=== PATIENT | female | born 2005 | race Caucasian/White ===

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

== ENCOUNTER 2023-03-26 14:27 | Emergency (ER) | payer OTHER, SELFPAY ==
[2023-03-26 14:35] VITALS: BP 117/64; PULSE 101; RESP 20; TEMP 37.1; O2SAT 99; BMI 28.5
--- NOTE | 2023-03-26 14:40 | ED.GENADULT ---
HPI - General Adult General Chief complaint: Psychiatric Symptoms Stated complaint: crisis Time Seen by Provider: 03/26/23 15:11 Source: patient Mode of arrival: ambulatory Limitations: no limitations History of Present Illness HPI narrative: 17 yo female G1 23 weeks sees [facility] for care here with c/o depression and anxiety but no SI. She has no medical and no OB complaints. She notes when she found out she was at 2 weeks she took herself off all of her psychiatric medications she now feels anxious and overwhelmed and does not have a prescriber. She is here wanting to talk to our crisis team. complaint: depression Onset (ago): week(s) Severity: moderate Quality: constant Relieving factors: none Exacerbating factors: other (life stress) Associated symptoms: other (has nausea with this she is on reglan) Treatments prior to arrival: none Related Data Home Medications Medication Instructions Recorded Confirmed vits no.130-ferrous fum 1 tab PO DAILY 03/26/23 03/26/23 27 mg iron-folic acid 800 mcg tablet ( Vitamin) pyridoxine (vitamin B6) 25 mg 25 mg PO DAILY 03/26/23 03/26/23 tablet (Vitamin B-6) valacyclovir 500 mg tablet 500 mg PO BID 03/26/23 03/26/23 (Valtrex) Previous Rx's Medication Instructions Recorded cefuroxime axetil 250 mg tablet 250 mg PO BID 7 days #14 tabs 03/27/23 Allergies Allergy/AdvReac Type Severity Reaction Status Date / Time pineapple Allergy Unknown Verified 08/31/22 12:50 clonidine AdvReac Anxiety Verified 01/18/22 01:24 From CONCERTA AdvReac Unknown TEETH Uncoded 04/23/20 18:27 GRINDING Review of Systems Review of Systems: Constitutional : No Fever, No Chills ENT/Mouth : No Ear Pain, No Nasal Congestion, No sore throat Eyes: No Eye Pain, No Swelling, No Redness Cardiovascular : No Chest Pain, No SOB Respiratory : No Cough, No Sputum, No Dyspnea Gastrointestinal : No Nausea, No Vomiting, No Diarrhea, No Hematochezia, No Melena Genitourinary : No Dysuria, No Urinary Frequency, No Hematuria Musculoskeletal : No Myalgias Skin : No Skin Lesions, No rash Neuro : No Weakness, No Numbness, No Paresthesias, No Dizziness, No Headache Psych : positive Anxiety, positive Depression, no SI/HI Heme/Lymph: No Lymphadenopathy Endocrine : No Polyuria, No Polydipsia All other systems reviewed and are negative [facility] Past Medical History Attestation statement: The following information was validated with the patient. Medical History ADHD (attention deficit hyperactivity disorder) Depression Post traumatic stress disorder (PTSD) Seizure-like activity Surgical History No pertinent past surgical history Family History Family History Other No family history of coronary artery disease Social History Social History Household Members: Family Housing: House Do you presently have visiting nurse or other home services: No Alcohol intake: former Patient Tobacco Use Status: Current everyday Tobacco user Tobacco use type: Smokeless Tobacco Cigarette Packs Per Day: 1.25 Cigarettes Per Day: 25.0 Years Smoked: 2 Smoked in Last 30 Days: No e-Cigarette/Vaping Use: Currently Using Second Hand Smoke Exposure: Yes Use of substances other than those prescribed or required for medical reasons: No Substance Use Type: Marijuana Advance Directives: No Advance Directives Information Provided: No Healthcare Proxy: No Guardian: No Patient : Yes service: No Sexual orientation: Did not discuss. Physical Exam ED Vital Signs: Vital Signs - 24 hr 03/26/23 14:35 03/26/23 18:53 03/27/23 00:01 Temperature 98.8 F 97.4 F Pulse Rate 101 H 72 78 Respiratory Rate 20 18 15 Blood Pressure 117/64 110/62 121/70 Pulse Oximetry 99 100 100 Oxygen Delivery Method Room Air Room Air Room Air 03/27/23 08:32 Temperature 97.6 F Pulse Rate 87 Respiratory Rate 14 Blood Pressure 108/62 Pulse Oximetry 100 Oxygen Delivery Method Room Air BMI result Body Mass Index 28.5 Appearance: Alert. Oriented X3. No acute distress. Calm and cooperative Eyes: Pupils equal, round and reactive to light. ENT: Pharynx normal. Neck: Normal inspection. Neck supple. CVS: Normal heart rate and rhythm. Pulses normal. Respiratory: No respiratory distress. Breath sounds normal. Abdomen: Soft and nontender. Skin: Skin warm and dry. Normal skin color. Normal skin turgor. Extremities: No lower extremity edema. No calf ttp Neuro: Oriented X 3. No motor deficit. No sensory deficit. CN2-12 intact Course Course Course Narrative: RME: 17 yold female presents to the ED for depression without any suicidal ideation. [facility]. patient is 23 weeks . patient denies any abdominal pain, vomitting, or vaginal bleeding/spotting Reevaluation(s) Reevaluation #1: urine is contaminated doubt UTI - there is 2+ bacteria but sig epithelial cells will send off culture while she is here. Reevaluation #2: Physician observation started at 407pm. Patient placed in physician observation because the patient needed more time for CARE team to assess the need for psych admission. At the time observation was started the patient's vitals were stable, patient is alert and oriented , Neuro: nonfocal, CV RRR, Lungs clear Reevaluation #3: Physician observation continued. CARE team saw patient suspect respite care today. VS stable no acute events today. Patient resting comfortably, NAD, lungs clear, CV RRR, Abd nontender, Neuro intact Additional Reevaluation(s): c/o some cramping no bleeding urinary pressure and bladder discomfort abdomen is nontender on exam she did have some WBC cells will start on ceftin and give reglan will obtain bedside US - + FHR and movement patient feels better. Physician observation ended at 12pm Patient seen and cleared by CARE team. Plan is to follow up at respite NAD, lungs clear, CV RRR, Abd nontender, Neuro intact. Disposition is for home. Medications Administered Generic Name Dose Route Start Last Admin Trade Name Freq PRN Reason Stop Dose Admin Cefuroxime Axetil 250 mg 03/27/23 11:45 03/27/23 12:01 Cefuroxime Axetil 250 Mg Tablet PO 250 mg BID KEREN Administration Metoclopramide HCl 5 mg 03/26/23 16:02 03/27/23 11:43 Metoclopramide Hcl 5 Mg Tablet PO 5 mg Q6H PRN Administration Nausea and Vomiting Multivitamins/Vitamin C 1 tab 03/27/23 09:00 03/27/23 08:38 Multivitamin Tablet PO 1 tab DAILY KEREN Administration Pyridoxine HCl 25 mg 03/27/23 09:00 03/27/23 09:07 Pyridoxine Hcl (Vitamin B6) 50 Mg Tablet PO 25 mg DAILY KEREN Administration Valacyclovir HCl 500 mg 03/26/23 23:30 03/27/23 08:39 Valacyclovir Hcl 500 Mg Tablet PO 500 mg BID KEREN Administration Discontinued Medications Generic Name Dose Route Start Last Admin Trade Name Oz PRN Reason Stop Dose Admin Acetaminophen 650 mg 03/27/23 03:11 03/27/23 03:14 Acetaminophen 325 Mg Tablet PO 03/27/23 03:12 650 mg ONCE ONE Administration Acetaminophen 650 mg 03/27/23 08:29 03/27/23 08:38 Acetaminophen 325 Mg Tablet PO 03/27/23 08:30 650 mg ONCE ONE Administration Medical Decision Making Medical Decision Making MDM Narrative: 17 yo female with hx of depression, ADHD, PTSD here with c/o depression after being off of her medications for the last 21 weeks she is 23 weeks has regular routine OB care. She denies SI but feels overwhelmed and sad. At this time labs and CARE team consult ordered Differential Diagnosis Differential Diagnoses: The differential diagnosis associated with the presentation includes depression and anxiety Admission/Observation Consideration of admission/observation: Escalation of care including admission/observation considered observe until CARE team sees patient Consult Healthcare Provider Management of the patient was discussed with: Behavioral Health Provider Lab Data [facility] Lab Attestation statement: I reviewed the patient's lab results. 03/26/23 16:20 03/26/23 16:20 Labs: Lab Results 03/26/23 03/26/23 03/26/23 Range/Units 15:06 15:06 16:20 WBC 8.6 (4.8-10.8) X10*3/uL RBC 3.88 L (4.20-5.50) X10*6/uL Hgb 11.9 L (12.0-16.0) g/dl Hct 34.0 L (37.0-47.0) % MCV 87.6 (80.0-98.0) fL MCH 30.7 (27.0-33.0) pg MCHC 35.0 (31.0-35.0) g/dl RDW 12.1 (11.0-16.0) % Plt Count 144 L (160-400) X10*3/uL MPV 13.0 H (9.4-12.3) fL Immature Gran % (Auto) 0.5 H (0.0-0.4) % Neut % (Auto) 75.1 H (45-73) % Lymph % (Auto) 16.5 L (20-40) % [place] % (Auto) 7.3 (2-11) % Eos % (Auto) 0.5 (0-4) % Baso % (Auto) 0.1 (0-2) % Lymph # (Auto) 1.4 (1.2-4.9) X10*3/uL [place] # (Auto) 0.6 (0.1-1.2) X10*3/uL Eos # (Auto) 0.0 (0.0-0.4) X10*3/uL Baso # (Auto) 0.0 (0.0-0.2) X10*3/uL Abs Immat Gran (auto) 0.04 H (0.00-0.03) X10*3/uL Absolute Neuts (auto) 6.5 (2.0-8.3) x10*3/uL Absolute Nucleated RBC 0.000 (0.0-0.012) X10*3/uL Nucleated RBC % (auto) 0.0 (0.0-0.2) /100WBC Sodium (135-145) mmol/L Potassium (3.3-5.1) mmol/L Chloride (96-108) mmol/L Carbon Dioxide (22-29) mmol/L Anion Gap (12-20) BUN (9-16) mg/dL Creatinine (0.5-1.4) mg/dL Estim Creat Clear Calc Estimated GFR Random Glucose (60-115) mg/dL Calcium (8.4-10.2) mg/dL Total Bilirubin (0.0-1.0) mg/dL AST (5-31) U/L ALT (0-31) U/L Alkaline Phosphatase (39-117) U/L Total Protein (6.5-8.0) g/dL Albumin (3.5-5.0) g/dL Beta HCG, Quant mIU/mL Urine Color Yellow Urine Appearance Turbid Urine pH 7.0 (5.0-9.0) Ur Specific [place] 1.020 (1.005-1.025) Urine Protein Trace (Neg-Trace) mg/dL Urine Glucose (UA) Negative (Negative) mg/dL Urine Ketones Negative (Negative) mg/dL Urine Blood Negative (Negative) Urine Nitrite Negative (Negative) Ur Leukocyte Esterase Moderate (2+) H (Negative) Urine RBC 0-2 (0-2) /HPF Urine WBC 11-20 H (0-5) /HPF Ur Squamous Epith Cells 11-20 (0-2) /HPF Urine Bacteria 2+ (None Seen) Hyaline Casts 0-2 (0-2) /LPF Salicylates (15-30) mg/dL Urine Opiates Screen Not Detected (Not Detect) Acetaminophen (<30) mcg/mL Ur Barbiturates Screen Not Detected (Not Detect) Ur Phencyclidine Scrn Not Detected (Not Detect) Ur Amphetamines Screen Not Detected (Not Detect) U Benzodiazepines Scrn Not Detected (Not Detect) Urine Cocaine Screen Not Detected (Not Detect) U Marijuana (THC) Screen Not Detected (Not Detect) Ethyl Alcohol mg/dL 03/26/23 03/26/23 Range/Units 16:20 16:21 WBC (4.8-10.8) X10*3/uL RBC (4.20-5.50) X10*6/uL Hgb (12.0-16.0) g/dl Hct (37.0-47.0) % MCV (80.0-98.0) fL MCH (27.0-33.0) pg MCHC (31.0-35.0) g/dl RDW (11.0-16.0) % Plt Count (160-400) X10*3/uL MPV (9.4-12.3) fL Immature Gran % (Auto) (0.0-0.4) % Neut % (Auto) (45-73) % Lymph % (Auto) (20-40) % [place] % (Auto) (2-11) % Eos % (Auto) (0-4) % Baso % (Auto) (0-2) % Lymph # (Auto) (1.2-4.9) X10*3/uL [place] # (Auto) (0.1-1.2) X10*3/uL Eos # (Auto) (0.0-0.4) X10*3/uL Baso # (Auto) (0.0-0.2) X10*3/uL Abs Immat Gran (auto) (0.00-0.03) X10*3/uL Absolute Neuts (auto) (2.0-8.3) x10*3/uL Absolute Nucleated RBC (0.0-0.012) X10*3/uL Nucleated RBC % (auto) (0.0-0.2) /100WBC Sodium 139 (135-145) mmol/L Potassium 3.8 (3.3-5.1) mmol/L Chloride 109 H (96-108) mmol/L Carbon Dioxide 22 (22-29) mmol/L Anion Gap 12 (12-20) BUN 6 L (9-16) mg/dL Creatinine 0.58 (0.5-1.4) mg/dL Estim Creat Clear Calc 166.4 Estimated GFR > 60 Random Glucose 75 (60-115) mg/dL Calcium 9.5 (8.4-10.2) mg/dL Total Bilirubin 0.4 (0.0-1.0) mg/dL AST 12 (5-31) U/L ALT 9 (0-31) U/L Alkaline Phosphatase 68 (39-117) U/L Total Protein 6.5 (6.5-8.0) g/dL Albumin 3.5 (3.5-5.0) g/dL Beta HCG, Quant 81028 mIU/mL Urine Color Urine Appearance Urine pH (5.0-9.0) Ur Specific [place] (1.005-1.025) Urine Protein (Neg-Trace) mg/dL Urine Glucose (UA) (Negative) mg/dL Urine Ketones (Negative) mg/dL Urine Blood (Negative) Urine Nitrite (Negative) Ur Leukocyte Esterase (Negative) Urine RBC (0-2) /HPF Urine WBC (0-5) /HPF Ur Squamous Epith Cells (0-2) /HPF Urine Bacteria (None Seen) Hyaline Casts (0-2) /LPF Salicylates < 5.0 L (15-30) mg/dL Urine Opiates Screen (Not Detect) Acetaminophen < 17 (<30) mcg/mL Ur Barbiturates Screen (Not Detect) Ur Phencyclidine Scrn (Not Detect) Ur Amphetamines Screen (Not Detect) U Benzodiazepines Scrn (Not Detect) Urine Cocaine Screen (Not Detect) U Marijuana (THC) Screen (Not Detect) Ethyl Alcohol < 10 mg/dL External Record Review External record reviewed: Inpatient record Discharge Plan Discharge Clinical Impression: Acute lower UTI Depression Qualifiers: Depression Type: unspecified Qualified Code(s): F32.A - Depression, unspecified Patient Disposition: Xfer to Respite Facility Instructions: Depression (ED), Urinary Tract Infection in (ED) Additional Instructions: return for worsening symptoms, pain , fevers , vominting, bleeding or any other concerns. antibiotics are safe in national hotline for thoughts of suicide is 988 Prescriptions: New cefuroxime axetil 250 mg tablet 250 mg PO BID 7 Days Qty: 14 0RF No Action pyridoxine (vitamin B6) [Vitamin B-6] 25 mg tablet 25 mg PO DAILY valacyclovir [Valtrex] 500 mg tablet 500 mg PO BID Vitamin 27 mg iron- 800 mcg tablet 1 tab PO DAILY Interventions: [place]-Suicide Risk Severity Scale Last Done: 03/27/23 06:50
[2023-03-26 15:15] LABS: Appearance Urine Turbid; Color Urine Yellow; Glucose Urine UA Negative (Negative); Leukocyte Esterase Urine Moderate (2+) (Negative); Nitrite Urine Negative (Negative); UMIC TRIGGER UACC YES; Urine Blood Negative (Negative); Urine Ketones Negative (Negative); Urine Protein Trace mg/dL (Neg-Trace)
[2023-03-26 15:20] LABS: Bacteria Urine 2+ (None Seen); Hyaline Casts Urine 0-2 /LPF (0-2); RBC Urine 0-2 /HPF (0-2); UACC Culture Trigger YES
[2023-03-26 16:05] LABS: Amphetamine Screen Urine Not Detected (Not Detect); Barbiturates, Urine Not Detected (Not Detect); Benzodiazepines Screen Urine Not Detected (Not Detect); Cannabinoid Screen Urine Not Detected (Not Detect); Cocaine Screen Urine Not Detected (Not Detect); Opiate Screen Urine Not Detected (Not Detect); Phencyclidine Screen Urine Not Detected (Not Detect)
[2023-03-26 16:24] LABS: MANUAL DIFF FLAG NO
[2023-03-26 16:26] LABS: Basophils Percent Auto 0.1 % (0-2); Eosinophils Percent Auto 0.5 % (0-4); Hemoglobin 11.9 g/dl (12.0-16.0); Imm Gran Abs Auto 0.04 X10*3/uL (0.00-0.03); Imm Gran Pct Auto 0.5 % (0.0-0.4); Lymphocytes Absolute Auto 1.4 X10*3/uL (1.2-4.9); Lymphocytes Percent Auto 16.5 % (20-40); Mean Corpuscular Hemoglobin 30.7 pg (27.0-33.0); Mean Corpuscular Volume 87.6 fL (80.0-98.0); Monocytes Absolute Auto 0.6 X10*3/uL (0.1-1.2); Monocytes Percent Auto 7.3 % (2-11); Neutrophils Absolute Auto 6.5 x10*3/uL (2.0-8.3); Neutrophils Percent Auto 75.1 % (45-73); Platelet Count 144 X10*3/uL (160-400); Red Blood Count 3.88 X10*6/uL (4.20-5.50); Red Cell Distribution Width 12.1 % (11.0-16.0); White Blood Count 8.6 X10*3/uL (4.8-10.8)
[2023-03-26 17:13] LABS: Alanine Aminotransferase 9 U/L (0-31); Albumin Level 3.5 g/dL (3.5-5.0); Alkaline Phosphatase 68 U/L (39-117); Anion Gap 12 (12-20); Aspartate Amino Transferase 12 U/L (5-31); Bilirubin Total 0.4 mg/dL (0.0-1.0); Blood Urea Nitrogen 6 mg/dL (9-16); Calcium 9.5 mg/dL (8.4-10.2); Carbon Dioxide 22 mmol/L (22-29); Chloride 109 mmol/L (96-108); Creatinine Clr Calc Pharmacy 166.4; Estimated Glomerular Filt Rate > 60; Ethanol < 10 mg/dL; Glucose Random 75 mg/dL (60-115); Potassium 3.8 mmol/L (3.3-5.1); Sodium 139 mmol/L (135-145); Total Protein 6.5 g/dL (6.5-8.0)
[2023-03-26] MEDS: Metoclopramide HCl 5 MG TABLET PO (17:15)
[2023-03-26 17:31] LABS: Acetaminophen LAB < 17 mcg/mL (<30); Salicylate < 5.0 mg/dL (15-30)
[2023-03-26 17:31] LABS: HCG Quantitative 28744 mIU/mL
[2023-03-26 18:53] VITALS: BP 110/62; PULSE 72; RESP 18; O2SAT 100
--- NOTE | 2023-03-26 21:15 | PC.NURSE ---
Report received and care assumed at 2100. Pt resting comfortably in EDB2 with respirations even and unlabored without distress noted. The pt will continue to be observed and monitored by staff.
--- NOTE | 2023-03-26 23:13 | PC.NURSE ---
report received from JARROD Mckeon. Pt is currently sleeping, respirations even and unlabored, no apparent distress. Per previous nurse, patient slept all day. Continue plan of care for CARE team follow up in the am
[2023-03-26] MEDS: valACYclovir HCL 500 MG TABLET PO (23:56)
--- NOTE | 2023-03-26 23:58 | PC.NURSE ---
pt awake, speaking with this RN. Pt appears calm and cooperative, offers no complaints to this RN. Denies pain or nausea. Pt medicated per MAR and vitals taken by GIANCARLO Griffin
[2023-03-27 00:01] VITALS: BP 121/70; PULSE 78; RESP 15; TEMP 36.3; O2SAT 100
[2023-03-27] MEDS: Acetaminophen 325 MG TABLET 650 MG PO ×2 (03:14→08:38)
[2023-03-27] MEDS: Metoclopramide HCl 5 MG TABLET PO ×2 (04:22→11:43)
--- NOTE | 2023-03-27 04:28 | PC.NURSE ---
Late entry: Pt reporting increased abdominal pain 8/10 in lower pelvic area. Describes as cramping. Denies bleeding/spotting. Endorses nausea. Pt provided with warm blanket, hot pack, additional fluids, Reglan, Tylenol. Pt reports feeling slightly better. This RN checked heart tones as well. Strong heartbeat at 147 bpm
[2023-03-27 08:32] VITALS: BP 108/62; PULSE 87; RESP 14; TEMP 36.4; O2SAT 100
[2023-03-27] MEDS: Multivitamin TABLET 1 TAB PO (08:38)
[2023-03-27] MEDS: valACYclovir HCL 500 MG TABLET PO (08:39)
[2023-03-27] MEDS: Pyridoxine HCl (Vitamin B6) 50 MG TABLET 25 MG PO (09:07)
--- NOTE | 2023-03-27 09:10 | PC.NURSE ---
pt a&o x4, pleasant, calm, and cooperative. ate breakfast, tolerated morning meds well. pt reports cramping and abdominal pressure. MD aware and pt medicated per oct. pt given additional fluids and encouraged to drink more. pt currently resting quietly in bed in pt room. rr even/unlabored. all pt needs met shanel
--- NOTE | 2023-03-27 12:09 | PC.NURSE ---
pt reporting increased abdominal pain rating 6/10. sts tylenol doses administered prior have not helped. notified and aware. Dr. Gilmore evaluated pt and performed ultrasound. meds ordered and pt medicated per oct. pt currently sitting outside room talking with staff/other pt. all pt needs met shanel
[2023-03-28 07:38] LABS: Fentanyl, urine Not Detected (Not Detect)
== END 2023-03-27 13:35 ==
PROVIDERS: Physician Assistant; Emergency Provider Emergency Medicine
DX: F33.1 Major depressive disorder, recurrent, moderate (principal); N39.0 Urinary tract infection, site not specified; F43.9 Reaction to severe stress, unspecified; F17.200 Nicotine dependence, unspecified, uncomplicated; Z71.6 Tobacco abuse counseling; Z79.899 Other long term (current) drug therapy
CPT/HCPCS: 36415; 80053; 80143; 80179; 80307; 81001; 84702; 85025; 87086; 99285; S9485

== ENCOUNTER 2023-12-13 20:38 | Emergency (ER) | payer OTHER, SELFPAY ==
[2023-12-13 20:53] VITALS: BP 116/54; PULSE 101; RESP 18; TEMP 37; O2SAT 98; BMI 27.5
== END 2023-12-14 02:21 | disposition left against medical advice (07) ==
PROVIDERS: Emergency Provider Emergency Medicine
DX: M25.539 Pain in unspecified wrist (principal)
CPT/HCPCS: 99281

== ENCOUNTER 2023-12-18 21:45 | Emergency (ER) | payer OTHER, SELFPAY ==
[2023-12-18 22:30] VITALS: BP 117/67; PULSE 89; RESP 20; TEMP 36.6; O2SAT 100; BMI 27.4
[2023-12-18 22:51] LABS: MANUAL DIFF FLAG NO
[2023-12-18 22:55] LABS: Basophils Percent Auto 0.3 % (0-2); Eosinophils Percent Auto 0.5 % (0-4); Hematocrit 39.9 % (37.0-47.0); Hemoglobin 13.9 g/dl (12.0-16.0); Imm Gran Abs Auto 0.01 X10*3/uL (0.00-0.03); Imm Gran Pct Auto 0.1 % (0.0-0.4); Lymphocytes Absolute Auto 2.2 X10*3/uL (1.2-4.9); Lymphocytes Percent Auto 30.7 % (20-40); Mean Corpuscular HGB Conc 34.8 g/dl (31.0-35.0); Mean Corpuscular Volume 86.2 fL (80.0-98.0); Mean Platelet Volume 13.2 fL (9.4-12.3); Monocytes Absolute Auto 0.6 X10*3/uL (0.1-1.2); Monocytes Percent Auto 8.2 % (2-11); Neutrophils Absolute Auto 4.4 x10*3/uL (2.0-8.3); Neutrophils Percent Auto 60.2 % (45-73); Platelet Count 157 X10*3/uL (160-400); Red Blood Count 4.63 X10*6/uL (4.20-5.50); Red Cell Distribution Width 12.7 % (11.0-16.0); White Blood Count 7.3 X10*3/uL (4.8-10.8)
[2023-12-18 23:12] LABS: Alanine Aminotransferase 11 U/L (0-31); Albumin Level 4.2 g/dL (3.5-5.0); Alkaline Phosphatase 68 U/L (39-117); Anion Gap 15 (12-20); Aspartate Amino Transferase 13 U/L (5-31); Bilirubin Total 0.4 mg/dL (0.0-1.0); Blood Urea Nitrogen 13 mg/dL (9-16); Calcium 9.4 mg/dL (8.4-10.2); Carbon Dioxide 20 mmol/L (22-29); Chloride 108 mmol/L (96-108); Creatinine Clr Calc Pharmacy 136.3; Estimated Glomerular Filt Rate > 60; Glucose Random 88 mg/dL (60-115); HCG Quantitative 67 mIU/mL; Potassium 4.1 mmol/L (3.3-5.1); Sodium 139 mmol/L (135-145); Total Protein 7.3 g/dL (6.5-8.0)
[2023-12-18 23:30] LABS: Influenza A PCR NEGATIVE (Negative); Influenza B PCR NEGATIVE (Negative); Resp Syncy Virus RNA Qual PCR NEGATIVE (Negative); SARS COV2 PCR INHOUSE NEGATIVE (Negative)
--- NOTE | 2023-12-19 02:05 | ED_ITS ---
HPI - General Adult General Chief complaint: General Medical Stated complaint: +preg home test/abd pain Time Seen by Provider: 12/19/23 01:37 Source: patient Mode of arrival: ambulatory Limitations: no limitations History of Present Illness HPI narrative: 18 yo female just had baby who is 5 months old c section full term not - + preg test on Monday has had period cramps since Monday no vaginal bleeding follows at [facility]. States she only had sex on 11/28 so she knows that's when conception was. MD complaint: + test Onset (ago): day(s) (Monday) Radiation: non-radiation Severity: mild Relieving factors: none Exacerbating factors: none Associated symptoms: other (abdominal pain nausea) Treatments prior to arrival: none Related Data Home Medications ?Medication ?Instructions ?Recorded ?Confirmed vits no.130-ferrous fum 1 tab PO DAILY 03/26/23 03/26/23 27 mg iron-folic acid 800 mcg tablet ( Vitamin) pyridoxine (vitamin B6) 25 mg 25 mg PO DAILY 03/26/23 03/26/23 tablet (Vitamin B-6) valacyclovir 500 mg tablet 500 mg PO BID 03/26/23 03/26/23 (Valtrex) Previous Rx's ?Medication ?Instructions ?Recorded cefuroxime axetil 250 mg tablet 250 mg PO BID 7 days #14 tabs 03/27/23 Allergies Allergy/AdvReac Type Severity Reaction Status Date / Time pineapple Allergy Unknown Verified 12/18/23 22:35 clonidine AdvReac Anxiety Verified 12/18/23 22:35 From CONCERTA AdvReac Unknown TEETH Uncoded 04/23/20 18:27 GRINDING Review of Systems 2 Review of Systems: Constitutional : No Weight loss, No Fever, No Chills ENT/Mouth : No sore throat, No Rhinorrhea Eyes: No Swelling, No Redness Cardiovascular : No Chest Pain, No SOB, NoEdema Respiratory : No Cough, No Sputum, No Wheezing Gastrointestinal : no Nausea, no Vomiting, no Diarrhea, positive abdominal Pain, No Hematochezia, No Melena Genitourinary : No Dysuria, No Urinary Frequency, No Hematuria, No Urgency Musculoskeletal : No joint pain, No Myalgias, No Joint Swelling Skin : No Skin Lesions, No rash Neuro : No Weakness, No Numbness, No Dizziness, No Headache Psych : No Anxiety/Panic, No Depression All other systems reviewed and are negative. [facility] Past Medical History Attestation statement: The following information was validated with the patient. Source: old records reviewed Medical History ADHD (attention deficit hyperactivity disorder) Post traumatic stress disorder (PTSD) Seizure-like activity Depression Surgical History No pertinent past surgical history Family History Family History Other No family history of coronary artery disease Social History Social History Household Members: Family Housing: House Do you presently have visiting nurse or other home services: No Alcohol intake: former Patient Tobacco Use Status: Current everyday Tobacco user Tobacco use type: Smokeless Tobacco Cigarette Packs Per Day: 1.25 Cigarettes Per Day: 25.0 Years Smoked: 2 e-Cigarette/Vaping Use: Currently Using Second Hand Smoke Exposure: Yes Substance Use Type: Marijuana Advance Directives: No Advance Directives Information Provided: No Do you have a plan to hurt others: No Plan service: No Sexual orientation: Did not discuss. Physical Exam ED Vital Signs: Vital Signs - 24 hr 12/18/23 22:30 Temperature 97.9 F Pulse Rate 89 Respiratory Rate 20 Blood Pressure 117/67 Pulse Oximetry 100 Oxygen Delivery Method Room Air BMI result Body Mass Index 27.4 Appearance: Alert. Oriented X3. No acute distress. Eyes: Pupils equal, round and reactive to light. ENT: Pharynx normal. Neck: Normal inspection. Neck supple. CVS: Normal heart rate and rhythm. Pulses normal. Respiratory: No respiratory distress. Breath sounds normal. Abdomen: Soft and nontender. Skin: Skin warm and dry. Normal skin color. Normal skin turgor. Extremities: No lower extremity edema. No calf ttp Neuro: Oriented X 3. No motor deficit. No sensory deficit. Procedures Procedure Narrative Procedure Narrative: bedside US I see uterus and ovaries no free fluid noted no sac seen in uterus Medical Decision Making Medical Decision Making MDM Narrative: 18 yo female just had labs and urine at [facility] - at this time quant only 67 bedside US no pelvic free fluid exam not consistent with ectopic. will send home with precautions she is going to see her OB in the AM Differential Diagnosis Differential Diagnoses: The differential diagnosis associated with the presentation includes early , just had urine done, doubt ectopic benign abdominal exam Lab Data MDM Lab Attestation statement: I reviewed the patient's lab results. 12/18/23 22:46 12/18/23 22:46 Labs: Lab Results 12/18/23 Range/Units 22:46 WBC 7.3 (4.8-10.8) X10*3/uL RBC 4.63 (4.20-5.50) X10*6/uL Hgb 13.9 (12.0-16.0) g/dl Hct 39.9 (37.0-47.0) % MCV 86.2 (80.0-98.0) fL MCH 30.0 (27.0-33.0) pg MCHC 34.8 (31.0-35.0) g/dl RDW 12.7 (11.0-16.0) % Plt Count 157 L (160-400) X10*3/uL MPV 13.2 H (9.4-12.3) fL Immature Gran % (Auto) 0.1 (0.0-0.4) % Neut % (Auto) 60.2 (45-73) % Lymph % (Auto) 30.7 (20-40) % [place] % (Auto) 8.2 (2-11) % Eos % (Auto) 0.5 (0-4) % Baso % (Auto) 0.3 (0-2) % Lymph # (Auto) 2.2 (1.2-4.9) X10*3/uL [place] # (Auto) 0.6 (0.1-1.2) X10*3/uL Eos # (Auto) 0.0 (0.0-0.4) X10*3/uL Baso # (Auto) 0.0 (0.0-0.2) X10*3/uL Abs Immat Gran (auto) 0.01 (0.00-0.03) X10*3/uL Absolute Neuts (auto) 4.4 (2.0-8.3) x10*3/uL Absolute Nucleated RBC 0.000 (0.0-0.012) X10*3/uL Nucleated RBC % (auto) 0.0 (0.0-0.2) /100WBC Sodium 139 (135-145) mmol/L Potassium 4.1 (3.3-5.1) mmol/L Chloride 108 (96-108) mmol/L Carbon Dioxide 20 L (22-29) mmol/L Anion Gap 15 (12-20) BUN 13 (9-16) mg/dL Creatinine 0.69 (0.5-1.4) mg/dL Estim Creat Clear Calc 136.3 Estimated GFR > 60 Random Glucose 88 (60-115) mg/dL Calcium 9.4 (8.4-10.2) mg/dL Total Bilirubin 0.4 (0.0-1.0) mg/dL AST 13 (5-31) U/L ALT 11 (0-31) U/L Alkaline Phosphatase 68 (39-117) U/L Total Protein 7.3 (6.5-8.0) g/dL Albumin 4.2 (3.5-5.0) g/dL Beta HCG, Quant 67 mIU/mL Influenza Type A (PCR) NEGATIVE (Negative) Influenza Type B (PCR) NEGATIVE (Negative) RSV RNA Qual (PCR) NEGATIVE (Negative) SARS-CoV-2 RNA (RT-PCR) NEGATIVE (Negative) Independent Interpretation I performed an independent interpretation of an: Ultrasound Radiology Impression Discussion of test interpretation with radiology: I have reviewed the radiologist's reading. External Record Review External record reviewed: Inpatient record Discharge Plan Discharge Clinical Impression: Early stage of Patient Disposition: Home, Self-Care Instructions: (ED) Additional Instructions: call your OB today. return for worsening pain, fainting, vaginal bleeding or any other concerns. you need to repeat test in 2 days and likely get internal ultrasound in 24 to 48 hours if symptoms persist or worsen Prescriptions: No Action pyridoxine (vitamin B6) [Vitamin B-6] 25 mg tablet 25 mg PO DAILY valacyclovir [Valtrex] 500 mg tablet 500 mg PO BID Vitamin 27 mg iron- 800 mcg tablet 1 tab PO DAILY cefuroxime axetil 250 mg tablet 250 mg PO BID 7 Days Qty: 14 0RF Print Language: Luxembourgish
[2023-12-19] MEDS: Ondansetron ODT 4 MG TAB.RAPDIS TRANSLINGU (02:11)
[2023-12-19 02:26] VITALS: BP 117/67; PULSE 89; RESP 20; TEMP 36.6; O2SAT 100
== END 2023-12-19 02:27 | disposition home or self-care (01) ==
PROVIDERS: Emergency Provider Emergency Medicine
DX: R10.2 Pelvic and perineal pain (principal); Z11.52 Encounter for screening for COVID-19; Z20.822 Contact with and (suspected) exposure to COVID-19; Z79.899 Other long term (current) drug therapy
CPT/HCPCS: 0241U; 36415; 80053; 84702; 85025; 99282; 99283

== ENCOUNTER 2023-12-21 13:02 | Emergency (ER) | payer OTHER, SELFPAY ==
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
[2023-12-21 13:18] VITALS: BP 126/67; PULSE 90; RESP 16; TEMP 36.9; O2SAT 98; BMI 29.8
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
[2023-12-21 14:00] LABS: MANUAL DIFF FLAG NO
[2023-12-21 14:08] LABS: Basophils Percent Auto 0.3 % (0-2); Eosinophils Absolute Auto 0.1 X10*3/uL (0.0-0.4); Eosinophils Percent Auto 0.8 % (0-4); Hematocrit 40.6 % (37.0-47.0); Hemoglobin 13.9 g/dl (12.0-16.0); Imm Gran Abs Auto 0.02 X10*3/uL (0.00-0.03); Imm Gran Pct Auto 0.3 % (0.0-0.4); Lymphocytes Absolute Auto 2.1 X10*3/uL (1.2-4.9); Lymphocytes Percent Auto 26.2 % (20-40); Mean Corpuscular HGB Conc 34.2 g/dl (31.0-35.0); Mean Corpuscular Hemoglobin 29.7 pg (27.0-33.0); Mean Corpuscular Volume 86.8 fL (80.0-98.0); Mean Platelet Volume 12.8 fL (9.4-12.3); Monocytes Absolute Auto 0.6 X10*3/uL (0.1-1.2); Monocytes Percent Auto 7.5 % (2-11); Neutrophils Absolute Auto 5.1 x10*3/uL (2.0-8.3); Neutrophils Percent Auto 64.9 % (45-73); Platelet Count 150 X10*3/uL (160-400); Red Blood Count 4.68 X10*6/uL (4.20-5.50); Red Cell Distribution Width 12.6 % (11.0-16.0); White Blood Count 7.8 X10*3/uL (4.8-10.8)
[2023-12-21] MEDS: 0.9 % Sodium Chloride 1,000 ML 999 ML IV (14:15)
[2023-12-21 14:20] LABS: Anion Gap 13 (12-20); Blood Urea Nitrogen 10 mg/dL (9-16); Calcium 9.4 mg/dL (8.4-10.2); Carbon Dioxide 21 mmol/L (22-29); Chloride 108 mmol/L (96-108); Creatinine Clr Calc Pharmacy 134.9; Estimated Glomerular Filt Rate > 60; Glucose Random 89 mg/dL (60-115); Potassium 4.4 mmol/L (3.3-5.1); Sodium 138 mmol/L (135-145)
[2023-12-21 14:23] LABS: HCG Quantitative 206 mIU/mL
[2023-12-21] MEDS: Acetaminophen 325 MG TABLET 650 MG PO (14:36)
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
[2023-12-21 15:33] VITALS: BP 116/63; PULSE 63; RESP 18; TEMP 36.9; O2SAT 99
--- NOTE | 2023-12-21 17:22 | PC.NURSE ---
pt removed her C-collar herself. pt informed of risks of doing so and she stated I dont care I'm not putting it back on . pt requesting to eat at this time. tearful., reports feeling frustrated.
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
[2023-12-21 18:17] VITALS: BP 116/63; PULSE 63; RESP 18; TEMP 36.9; O2SAT 99
== END 2023-12-21 18:18 | disposition home or self-care (01) ==
PROVIDERS: Emergency Provider Emergency Medicine; PCP Nurse Practitioner
DX: Z04.1 Encounter for examination and observation following transport accident (principal); O26.891 Other specified pregnancy related conditions, first trimester; R51.9 Headache, unspecified; R10.9 Unspecified abdominal pain; O99.891 Other specified diseases and conditions complicating pregnancy; M54.2 Cervicalgia; Z3A.01 Less than 8 weeks gestation of pregnancy
CPT/HCPCS: 36415; 70450; 72125; 76801; 76817; 80048; 84702; 85025; 96360; 99284; 99285

== ENCOUNTER → 2023-12-21 13:30 | Outpatient (BNV) | payer OTHER, SELFPAY | PROVIDERS: Emergency Provider Emergency Medicine; PCP Nurse Practitioner; Visit Provider Obstetrics & Gynecology | DX: Z34.90 Encounter for supervision of normal pregnancy, unspecified, unspecified trimester (principal) | CPT/HCPCS: 99283 ==

== ENCOUNTER 2025-01-02 19:02 | Emergency (ER) | payer OTHER, SELFPAY ==
--- NOTE | ~2025-01-02 | XR_ITS ---
CLINICAL HISTORY: L sided pain 2 view chest x-ray Comparison: CR/SR - XR CHEST 1V - 11/05/22 01:54 EDT Findings: No consolidation or effusion. No pneumothorax. Heart size is normal. No acute fracture. IMPRESSION: 1. No acute findings. This document has been electronically signed by: Concepcion Weller MD on 01/03/2025 01:06:58
[2025-01-02 19:18] VITALS: BP 107/71; PULSE 96; RESP 20; TEMP 37.1; O2SAT 98; BMI 25.8
--- NOTE | 2025-01-02 19:25 | ED.ABDPAIN ---
HPI - Abdominal Pain General Chief Complaint: Abdominal Pain Stated Complaint: L side abd/back pain Time Seen by Provider: 01/02/25 19:35 Source: patient Mode of arrival: ambulatory Limitations: no limitations History of Present Illness ED Provider: june rausch np HPI narrative: patient is a 19-year-old female who presents emergency department for evaluation of left upper quadrant abdominal pain radiating to the left flank intermittently over the past 3 weeks. She states it is sharp in nature when it occurs. She is not able to identify specific exacerbating or alleviating factors. She has a associated nausea but no vomiting. No constipation or diarrhea. She states that she overall has not been eating very much she does not have an appetite and with the pain she does not want to eat. She typically wakes at 06:00, does not eat anything until approximately 17:00 in the evening when she might have a ?snack? a granola bar or goldfish. She feels very fatigued throughout the day, and has occasional dizziness which does improve once she consume something to eat. At times she feels the pain radiate to her mid chest described as a burning sensation, states ?I thought it was acid reflux because I had it during my but it to have gone away?. She is 4 months . She has not taken any antacid medications. Denies associated cough, shortness of breath, difficulty breathing. Denies fevers or chills. She denies overt genitourinary symptoms; dysuria, urinary urgency/hesitancy, or hematuria, she however does state that she feels like she is urinating a lot (large volume), but does state that she has been drinking lot of water. Denies pelvic pain or abnormal vaginal discharge. Denies concern for . Related Data Home Medications ?Medication ?Instructions ?Recorded ?Confirmed vits no.130-ferrous fum 1 tab PO DAILY 03/26/23 03/26/23 27 mg iron-folic acid 800 mcg tablet ( Vitamin) pyridoxine (vitamin B6) 25 mg 25 mg PO DAILY 03/26/23 03/26/23 tablet (Vitamin B-6) valacyclovir 500 mg tablet 500 mg PO BID 03/26/23 03/26/23 (Valtrex) Previous Rx's ?Medication ?Instructions ?Recorded cefuroxime axetil 250 mg tablet 250 mg PO BID 7 days #14 tabs 03/27/23 Allergies Allergy/AdvReac Type Severity Reaction Status Date / Time pineapple Allergy Unknown Verified 01/02/25 19:20 clonidine AdvReac Anxiety Verified 01/02/25 19:20 From [facility]CERTA AdvReac Unknown TEETH Uncoded 01/02/25 19:20 GRINDING Review of Systems Review of Systems Yes all other systems are reviewed and are negative PMFSH Past Medical History Attestation statement: The following information was validated with the patient. Source: old records reviewed Medical History ADHD (attention deficit hyperactivity disorder) Post traumatic stress disorder (PTSD) Seizure-like activity Depression Surgical History No pertinent past surgical history Family History Family History Other No family history of coronary artery disease Social History Social History Household Members: Family Housing: House Do you presently have visiting nurse or other home services: No Alcohol intake: former Patient Tobacco Use Status: Current everyday Tobacco user Tobacco use type: Smokeless Tobacco Cigarette Packs Per Day: 1.25 Cigarettes Per Day: 25.0 Years Smoked: 2 e-Cigarette/Vaping Use: Currently Using Second Hand Smoke Exposure: Yes Substance Use Type: Marijuana Advance Directives: No Advance Directives Information Provided: No Patient : No service: No Sexual orientation: Did not discuss. Physical Exam ED Vital Signs: Vital Signs - 24 hr 01/02/25 19:18 01/02/25 20:21 01/02/25 21:50 Temperature 98.7 F 98.7 F 98.7 F Pulse Rate 96 74 86 Respiratory Rate 20 16 16 Blood Pressure 107/71 106/59 L 114/61 Pulse Oximetry 98 97 97 Oxygen Delivery Method Room Air Room Air Room Air 01/03/25 00:37 Temperature 98.3 F Pulse Rate 68 Respiratory Rate 18 Blood Pressure 108/63 Pulse Oximetry 98 Oxygen Delivery Method Room Air BMI result Body Mass Index 25.8 Appearance: Alert.?Oriented to person, place and time. No acute distress.?Normal affect.?? Neck: Normal inspection.? Neck supple.?? CVS: Heart sounds normal. Normal heart rate and rhythm.? Pulses normal.?? Respiratory: No respiratory distress.? Lung sounds clear to auscultation bilaterally?? Abdomen: Soft and non-tender. No rebound tenderness at McBurney's point. Negative psoas sign. Negative Rovsing sign. Negative Gomez sign. Mild left CVAT. Normoactive bowel sounds. No pulsatile mass.?? Skin: Skin warm and dry.? Normal skin color.? Extremities: No lower extremity edema.? Neuro: Moves all extremities spontaneously. Sensation intact bilaterally. Ambulates with normal steady gait. Course Course Course Narrative: This is an RME: Additional HPI, ROS, PE not included below will be deferred to primary provider. RME assessment and note performed by: Kavitha Branch PA-C This is a 22-female who presents to the ER with complaints of left sided flank pain x 3 weeks. Also reports fatigue, decreased appetite. No dysuria, but states that she is urinating alot . Mild CVA tenderness on the left. She is 4 months post .reporting some chest pain intermittently as well. No SOB. Plan: Labs, EKG, UA, further ER eval needed. Reevaluation(s) Reevaluation #1: CBC is without leukocytosis anemia or thrombocytopenia. No electrolyte derangement. No DIDIER. LFTs and lipase unremarkable. HCG is negative. High sensitive troponin below detectable limits, EKG revealing a normal sinus rhythm with ventricular rate of 71, QTC 389, no ST-elevation. Viral serologies are negative. Urinalysis with trace leukocyte esterase 1+ urine bacteria as well as squamous epithelial cells, has had similar appearing urinalysis in the past, suspect this is urogenital contamination given no overt urinary symptoms. Trialing GI cocktail including Maalox, lidocaine viscous and Pepcid for symptomatic treatment at this time. D-dimer pending. Time: 21:39 Reevaluation #2: D-dimer negative, pulmonary embolism unlikely. Reports no change in pain after receiving GI cocktail. Received ibuprofen with some improvement in pain. Chest x-ray was obtained and on my interpretation does not have any acute pathology no evidence of pneumonia. I did ask if she feels as though her depression is under well control or if she has been having a particularly difficult time especially with the of her new baby in the past few months. She states that she does not feel depressed/overwhelmed, does not think this is related to her symptoms. She is requesting discharge home at this time, she is tolerating oral intake. I feel she is otherwise appropriate for discharge and outpatient follow-up with primary care doctor. Given strict return precautions. All questions answered Medical Decision Making Medical Decision Making MDM Narrative: Patient is a 19-year-old female who presents emergency department for evaluation of left upper quadrant abdominal pain/left flank pain intermittent over the past 3 weeks ago particularly worse over the past 3 days oral intake as well as nausea. She has additionally generalized fatigue and dizziness. Unfortunately, she is not consuming very much caloric intake, in the evening she might have a small snack, we discussed fatigue, nausea, as well as dizziness which can occur with lack of oral intake and/or hypoglycemia. Her abdominal exam at this time is benign, there was no distention rigidity or guarding, no tenderness upon palpation in the left upper quadrant. She is afebrile without tachycardia no hypotension. Lower suspicion for acute surgical abdomen as her known peritoneal signs. He has mild left CVA tenderness. Pain intermittently is felt into the chest, I suspect this is likely gastritis. Has no risk factors for ACS. She is 4 months , will obtain a D-dimer to exclude pulmonary embolism but again she is without tachycardic, has no hypoxia or tachypnea, no endorse shortness of breath or difficulty breathing. No recent URI symptoms to suggest pneumonia. She denies overt urinary symptoms aside from urinating ?a lot? but is nonpainful, no hematuria, and she has increased her fluid intake. Lower suspicion for UTI/renal colic secondary to pyelonephritis/nephrolithiasis/obstructive uropathy. Differential Diagnosis Differential Diagnoses: The differential diagnosis associated with the presentation includes (See narrative above) Admission/Observation Consideration of admission/observation: Escalation of care including admission/observation considered (See narrative above ) Lab Data MDM Lab Attestation statement: I reviewed the patient's lab results. 01/02/25 20:37 01/02/25 20:37 Labs: Lab Results 01/02/25 01/02/25 Range/Units 20:37 21:56 WBC 7.0 (4.8-10.8) X10*3/uL RBC 4.52 (4.20-5.50) X10*6/uL Hgb 13.5 (12.0-16.0) g/dl Hct 39.0 (37.0-47.0) % MCV 86.3 (80.0-98.0) fL MCH 29.9 (27.0-33.0) pg MCHC 34.6 (31.0-35.0) g/dl RDW 12.1 (11.0-16.0) % Plt Count 177 (160-400) X10*3/uL MPV 12.6 H (9.4-12.3) fL Immature Gran % (Auto) 0.3 (0.0-0.4) % Neut % (Auto) 53.3 (45-73) % Lymph % (Auto) 36.6 (20-40) % [place] % (Auto) 8.1 (2-11) % Eos % (Auto) 1.3 (0-4) % Baso % (Auto) 0.4 (0-2) % Lymph # (Auto) 2.6 (1.2-4.9) X10*3/uL [place] # (Auto) 0.6 (0.1-1.2) X10*3/uL Eos # (Auto) 0.1 (0.0-0.4) X10*3/uL Baso # (Auto) 0.0 (0.0-0.2) X10*3/uL Abs Immat Gran (auto) 0.02 (0.00-0.03) X10*3/uL Absolute Neuts (auto) 3.8 (2.0-8.3) x10*3/uL Absolute Nucleated RBC 0.000 (0.0-0.012) X10*3/uL Nucleated RBC % (auto) 0.0 (0.0-0.2) /100WBC D-Dimer High Sensitivty < 150 NG/ML Sodium 140 (135-145) mmol/L Potassium 4.5 (3.3-5.1) mmol/L Chloride 110 H (96-108) mmol/L Carbon Dioxide 24 (22-29) mmol/L Anion Gap 11 L (12-20) BUN 16 (9-16) mg/dL Creatinine 0.67 (0.5-1.4) mg/dL Estim Creat Clear Calc 135.4 Estimated GFR > 60 Random Glucose 85 (60-115) mg/dL Calcium 9.4 (8.4-10.2) mg/dL Magnesium 1.8 (1.6-2.6) mg/dL Total Bilirubin 0.4 (0.0-1.0) mg/dL Direct Bilirubin 0.1 (0.0-0.5) mg/dL AST 18 (5-31) U/L ALT 22 (0-31) U/L Alkaline Phosphatase 49 (39-117) U/L Troponin I High Sens < 2.7 (<3.5-17.0) ng/L Total Protein 7.3 (6.5-8.0) g/dL Albumin 4.2 (3.5-5.0) g/dL Lipase 16 (8-78) U/L Beta HCG, Quant < 2 mIU/mL Urine Color Yellow Urine Appearance Clear Urine pH 6.0 (5.0-9.0) Ur Specific [place] >= 1.030 H (1.005-1.025) Urine Protein Negative (Neg-Trace) mg/dL Urine Glucose (UA) Negative (Negative) mg/dL Urine Ketones Trace (Negative) mg/dL Urine Blood Negative (Negative) Urine Nitrite Negative (Negative) Ur Leukocyte Esterase Trace H (Negative) Urine RBC 0-2 (0-2) /HPF Urine WBC 0-5 (0-5) /HPF Ur Squamous Epith Cells 6-10 (0-2) /HPF Urine Bacteria 1+ (None Seen) Hyaline Casts 0-2 (0-2) /LPF Influenza Type A (PCR) NEGATIVE (Negative) Influenza Type B (PCR) NEGATIVE (Negative) RSV RNA Qual (PCR) NEGATIVE (Negative) SARS-CoV-2 RNA (RT-PCR) NEGATIVE (Negative) Radiology Impression Discussion of test interpretation with radiology: I have reviewed the radiologist's reading. External Record Review External record reviewed: Outpatient record Medications Administered Discontinued Medications Generic Name Dose Route Start Last Admin Trade Name Freq PRN Reason Stop Dose Admin Al Hydroxide/Mg Hydroxide 30 ml 01/02/25 21:22 01/02/25 21:36 Magnesium Hydrox/Alum Hydrox 30 Ml Oral.Susp PO 01/02/25 21:23 30 ml ONCE ONE Administration Famotidine 20 mg 01/02/25 21:22 01/02/25 21:36 Famotidine 20 Mg Tablet PO 01/02/25 21:23 20 mg ONCE ONE Administration Ibuprofen 600 mg 01/02/25 23:17 01/02/25 23:38 Ibuprofen 600 Mg Tablet PO 01/02/25 23:18 600 mg ONCE ONE Administration Lidocaine HCl 15 ml 01/02/25 21:22 01/02/25 21:36 Lidocaine Hcl Viscous 2 % 15 Ml Solution MUCOUS MEM 01/02/25 21:23 15 ml ONCE ONE Administration Discharge Plan Discharge Clinical Impression: Flank pain Patient Disposition: Home, Self-Care Instructions: Flank Pain (ED) Additional Instructions: As discussed, it is important that you are consuming meals throughout the day, you may try smaller more frequent meals. Contact your primary care provider to arrange for a follow-up visit. You may return to emergency department any new or worsening symptoms or concerns Prescriptions: No Action pyridoxine (vitamin B6) [Vitamin B-6] 25 mg tablet 25 mg PO DAILY valacyclovir [Valtrex] 500 mg tablet 500 mg PO BID Vitamin 27 mg iron- 800 mcg tablet 1 tab PO DAILY cefuroxime axetil 250 mg tablet 250 mg PO BID 7 Days Qty: 14 0RF Referrals: Sophia Olivo NP [Primary Care Provider] - Print Language: Panamanian
--- NOTE | 2025-01-02 19:30 | ECG_ITS ---
Test Reason : ABD PAIN Blood Pressure : */* mmHG Vent. Rate : 71 BPM Atrial Rate : 71 BPM P-R Int : 132 ms QRS Dur : 84 ms QT Int : 358 ms P-R-T Axes : 39 74 45 degrees QTcB Int : 389 ms Normal sinus rhythm Normal ECG When compared with ECG of 31-Aug-2022 13:03, No significant change was found Referred By: Kavitha Branch Electronically Signed By: DI MENDENHALL MD
[2025-01-02 20:21] VITALS: BP 106/59; PULSE 74; RESP 16; TEMP 37.1; O2SAT 97
[2025-01-02 20:42] LABS: MANUAL DIFF FLAG NO
--- NOTE | 2025-01-02 20:42 | MHC.EDTECH ---
This Pct assumed care of Patient around 1999 ,vitals taken ,urine sample collected ,blood drawn ,rsv/covid swab collected all sent ras lab ,ekg taken and was read by Provider ,Patient awake watching television ,waiting to see Provider and nurse .Call fraga within Pt reach .
[2025-01-02 20:46] LABS: Basophils Percent Auto 0.4 % (0-2); Eosinophils Absolute Auto 0.1 X10*3/uL (0.0-0.4); Eosinophils Percent Auto 1.3 % (0-4); Hemoglobin 13.5 g/dl (12.0-16.0); Imm Gran Abs Auto 0.02 X10*3/uL (0.00-0.03); Imm Gran Pct Auto 0.3 % (0.0-0.4); Lymphocytes Absolute Auto 2.6 X10*3/uL (1.2-4.9); Lymphocytes Percent Auto 36.6 % (20-40); Mean Corpuscular HGB Conc 34.6 g/dl (31.0-35.0); Mean Corpuscular Hemoglobin 29.9 pg (27.0-33.0); Mean Corpuscular Volume 86.3 fL (80.0-98.0); Mean Platelet Volume 12.6 fL (9.4-12.3); Monocytes Absolute Auto 0.6 X10*3/uL (0.1-1.2); Monocytes Percent Auto 8.1 % (2-11); Neutrophils Absolute Auto 3.8 x10*3/uL (2.0-8.3); Neutrophils Percent Auto 53.3 % (45-73); Platelet Count 177 X10*3/uL (160-400); Red Blood Count 4.52 X10*6/uL (4.20-5.50); Red Cell Distribution Width 12.1 % (11.0-16.0)
[2025-01-02 20:56] LABS: Appearance Urine Clear; Color Urine Yellow; Glucose Urine UA Negative (Negative); Leukocyte Esterase Urine Trace (Negative); Nitrite Urine Negative (Negative); Specific Gravity - Urine >= 1.030 (1.005-1.025); UMIC TRIGGER UACC YES; Urine Blood Negative (Negative); Urine Ketones Trace mg/dL (Negative); Urine Protein Negative (Neg-Trace)
[2025-01-02 21:01] LABS: Bacteria Urine 1+ (None Seen); Hyaline Casts Urine 0-2 /LPF (0-2); RBC Urine 0-2 /HPF (0-2); WBC Urine 0-5 /HPF (0-5)
[2025-01-02 21:07] LABS: Alanine Aminotransferase 22 U/L (0-31); Albumin Level 4.2 g/dL (3.5-5.0); Alkaline Phosphatase 49 U/L (39-117); Anion Gap 11 (12-20); Aspartate Amino Transferase 18 U/L (5-31); Bilirubin Direct 0.1 mg/dL (0.0-0.5); Bilirubin Total 0.4 mg/dL (0.0-1.0); Blood Urea Nitrogen 16 mg/dL (9-16); Calcium 9.4 mg/dL (8.4-10.2); Carbon Dioxide 24 mmol/L (22-29); Chloride 110 mmol/L (96-108); Creatinine Clr Calc Pharmacy 135.4; Estimated Glomerular Filt Rate > 60; Glucose Random 85 mg/dL (60-115); HCG Quantitative < 2 mIU/mL; Lipase 16 U/L (8-78); Magnesium 1.8 mg/dL (1.6-2.6); Potassium 4.5 mmol/L (3.3-5.1); Sodium 140 mmol/L (135-145); Total Protein 7.3 g/dL (6.5-8.0); Troponin-I High Sensitivity < 2.7 ng/L (<3.5-17.0)
[2025-01-02 21:22] LABS: Influenza A PCR NEGATIVE (Negative); Influenza B PCR NEGATIVE (Negative); Resp Syncy Virus RNA Qual PCR NEGATIVE (Negative); SARS COV2 PCR INHOUSE NEGATIVE (Negative)
[2025-01-02] MEDS: Famotidine 20 MG TABLET PO (21:36)
[2025-01-02] MEDS: Magnesium Hydrox/Alum Hydrox 30 ML ORAL.SUSP PO (21:36)
[2025-01-02] MEDS: Lidocaine HCl Viscous 2 % 15 ML SOLUTION MUCOUS MEM (21:36)
[2025-01-02 21:50] VITALS: BP 114/61; PULSE 86; RESP 16; TEMP 37.1; O2SAT 97
--- NOTE | 2025-01-02 22:00 | MHC.EDTECH ---
2200 rounding done ,vitals taken D dimer drawn and sent to lab .
[2025-01-02 22:23] LABS: D Dimer High Sensitivity < 150 NG/ML
[2025-01-02] MEDS: Ibuprofen 600 MG TABLET PO (23:38)
[2025-01-03 00:37] VITALS: BP 108/63; PULSE 68; RESP 18; TEMP 36.8; O2SAT 98
[2025-01-03 00:55] VITALS: BP 108/63; PULSE 68; RESP 18; TEMP 36.8; O2SAT 98
== END 2025-01-03 01:01 | disposition home or self-care (01) ==
PROVIDERS: Nurse Practitioner Family; Physician Assistant Medical; Emergency Provider Emergency Medicine; PCP Nurse Practitioner
DX: R10.2 Pelvic and perineal pain (principal); M54.50 Low back pain, unspecified; Z03.818 Encounter for observation for suspected exposure to other biological agents ruled out; Z79.899 Other long term (current) drug therapy
CPT/HCPCS: 0241U; 36415; 71046; 80048; 80076; 81001; 83690; 83735; 84484; 84702; 85025; 85379; 93005; 99283; 99285

== ENCOUNTER → 2025-01-02 19:30 | Outpatient (BNV) | payer OTHER, SELFPAY | PROVIDERS: Emergency Provider Emergency Medicine; PCP Nurse Practitioner; Visit Provider Internal Medicine Cardiovascular Disease | DX: R10.9 Unspecified abdominal pain (principal) | CPT/HCPCS: 93010 ==

== ENCOUNTER → 2025-01-02 23:15 | Outpatient (BNV) | payer OTHER, SELFPAY | PROVIDERS: Emergency Provider Emergency Medicine; PCP Nurse Practitioner; Visit Provider Radiology Diagnostic Radiology | DX: R07.89 Other chest pain (principal) | CPT/HCPCS: 71046 ==